=== PATIENT | female | born 1955 | race Two or more races ===

== ENCOUNTER 2020-01-18 11:53 | Inpatient (IN) | payer OTHER ==
[~2020-01-18] VITALS: Ht 152.4 cm; Wt 71.2 kg
[2020-01-31] MEDS ORDERED: ATORVASTATIN CA20 MG PO (14:51)
[2020-01-31] MEDS ORDERED: LEVO-T175 MCG PO (14:51)
[2020-01-31] MEDS ORDERED: ZOLPIDEM TARTRA10 MG PO (14:51)
[2020-01-31] MEDS ORDERED: BENEFIBER1 EAC1 PO (14:52)
[2020-01-31] MEDS ORDERED: CIPRO500 MG PO (14:52)
[2020-01-31] MEDS ORDERED: ADVIL100 M1 PO (14:53)
[2020-02-09] MEDS ORDERED: OXYC1TAB9 PO (12:24)
== END 2020-02-09 13:56 | disposition home or self-care (01) | DRG 331 ==
LOC: SURG 02-06 07:54 → O/R 02-06 07:54 → SURH 02-06 11:00 → SURG 02-06 19:46 → O/R 02-06 19:49 → SURG 02-07 11:06
PROVIDERS: ADMIT Surgery; ATTEND Surgery
PROC: 0DBN4ZZ Excision of Sigmoid Colon, Percutaneous Endoscopic Approach (ICD-10-PCS; 2020-02-06)
PROC: 0DJD8ZZ Inspection of Lower Intestinal Tract, Via Natural or Artificial Opening Endoscopic (ICD-10-PCS; 2020-02-06)
PROC: 0DTP4ZZ Resection of Rectum, Percutaneous Endoscopic Approach (ICD-10-PCS; principal; 2020-02-06 12:00)
DX: K57.20 Diverticulitis of large intestine with perforation and abscess without bleeding (principal); E03.9 Hypothyroidism, unspecified; E66.8 Other obesity; D64.9 Anemia, unspecified; Z68.30 Body mass index [BMI] 30.0-30.9, adult; E78.00 Pure hypercholesterolemia, unspecified